=== PATIENT | male | born 1980 | race Caucasian/White ===

== ENCOUNTER 2017-01-04 09:18 | Emergency (ER) | payer OTHER, MEDICAID ==
[2017-01-04 09:23] VITALS: BP 122/83; PULSE 107; RESP 18; TEMP 98.1
--- NOTE | 2017-01-04 09:52 | ED ---
General Adult HPI - General Chief complaint: Needlestick/Exposure Stated complaint: needlestick Time Seen by Provider: 01/04/17 09:33 Source: patient, RN notes reviewed Mode of arrival: ambulatory Limitations: no limitations - History of Present Illness Initial comments: 36-year-old male presents to the emergency department with a chief complaint of needle stick injury. Patient states it happened at the surgical unit today during open heart case. Patient states that she has tetanus and his hepatitis vaccinations. Patient states he just nicked the back of his left ring finger. Patient denies any other injuries at this time. Patient's any pain or discomfort.Patient denies any recent fever, chills, shortness of breath, chest pain, back pain, abdominal pain, nausea vomiting, numbness or tingling, dysuria or hematuria, constipation or diarrhea, headaches or visual changes, or any other current symptoms. - Related Data Home Medications Medication Instructions Recorded Confirmed Dextroamphetamine/Amphetamine 25 mg PO DAILY 01/04/17 01/04/17 [Adderall Xr] Multivitamins, Thera [Multivitamin 1 tab PO DAILY 01/04/17 01/04/17 (formulary)] Allergies Allergy/AdvReac Type Severity Reaction Status Date / Time No Known Allergies Allergy Verified 01/04/17 09:32 Review of Systems ROS Statement: Those systems with pertinent positive or pertinent negative responses have been documented in the HPI. ROS Other: All systems not noted in ROS Statement are negative. Past Medical History Past Medical History: No Reported History History of Any Multi-Drug Resistant Organisms: None Reported Past Surgical History: No Surgical Hx Reported Past Psychological History: No Psychological Hx Reported Smoking Status: Never smoker Past Alcohol Use History: Occasional Past Drug Use History: None Reported General Exam - General Exam Comments Initial Comments: General: The patient is awake and alert, in no distress, and does not appear acutely ill. Neck: The neck is supple, there is no tenderness. Cardiovascular: There is a regular rate. Respiratory: respirations are non-labored Musculoskeletal: Sensation intact to plus pulses. Left extremity. Find motion of left hand. Patient does appear to have a needle stick injury to the left ring finger on the extensor side. Neurological: CN II-XII intact, There are no obvious motor or sensory deficits. Coordination appears grossly intact. Speech is normal. Skin: Skin is warm and dry and no rashes or lesions are noted. Psychiatric: Normal mood and affect. Limitations: no limitations Course Vital Signs 01/04/17 09:19 Temperature 98.1 F Pulse Rate 107 H Respiratory 18 Rate Blood Pressure 122/83 O2 Sat by Pulse 98 Oximetry Medical Decision Making - Medical Decision Making 36-year-old male presents emergency Department chief complaint of needle stick injury to left hand. This time appropriate lab work and information was taken for the patient. This time we did discuss follow-up. We did discuss return parameters were discussed outpatient family's questions. They state Agustín they are in agreement plan. All questions have been answered. They will be discharged this time. Disposition Clinical Impression: Needle stick injury of finger of left hand Disposition: HOME SELF-CARE Condition: Stable Instructions: Needle Stick Injuries (ED) Additional Instructions: Please use medication as discussed. Please follow up with family doctor if symptoms have not improved over the next two days. Please return to the emergency room if your symptoms increase or worsen or for any other concerns. Referrals: Yuan Fields MD [Primary Care Provider] - 1-2 days
[2017-01-05 11:00] LABS: Hepatitis C Virus IgG Ab Negative (Negative); Hepatitis C Virus IgG Index 0.03
== END 2017-01-04 09:59 | disposition home or self-care (01) ==
LOC: EC 09:18
DX: S69.92XA Unspecified injury of left wrist, hand and finger(s), initial encounter (principal); Z79.899 Other long term (current) drug therapy; W46.0XXA Contact with hypodermic needle, initial encounter; Y93.89 Activity, other specified; Y92.234 Operating room of hospital as the place of occurrence of the external cause
CPT/HCPCS: 36415; 86706; 86803; 87390; 99282

== ENCOUNTER → 2017-02-05 | Outpatient (CLI) | payer MEDICAID, BC ==
[2017-02-05 11:27] LABS: Basophils % (A) 1 %; CH 32.7; CHCM 35.4; Eosinophils # (A) 0.2 k/uL (0-0.7); Eosinophils % (A) 4 %; HCT 50.7 % (39.0-53.0); HDW 2.69; HGB 17.2 gm/dL (13.0-17.5); Luc # (Auto) 0.15; Luc % (Auto) 3; Lymphocytes # (A) 1.5 k/uL (1.0-4.8); Lymphocytes % (A) 29 %; MCH 31.4 pg (25.0-35.0); MCHC 33.9 g/dL (31.0-37.0); MCV 92.7 fL (80.0-100.0); Mean Platelet Volume 6.6; Monocytes # (A) 0.4 k/uL (0-1.0); Monocytes % (A) 8 %; Neutrophils # (A) 2.8 k/uL (1.3-7.7); Neutrophils % (A) 56 %; RBC 5.47 m/uL (4.30-5.90); WBC (Perox) 5.06
[2017-02-05 11:41] LABS: ALT 31 U/L (21-72); AST 24 U/L (17-59); Alkaline Phosphatase 66 U/L (38-126); Anion Gap 10 mmol/L; Blood Urea Nitrogen 12 mg/dL (9-20); Calcium 9.7 mg/dL (8.4-10.2); Carbon Dioxide 28 mmol/L (22-30); Chloride 103 mmol/L (98-107); Cholesterol 173 mg/dL (<200); Glucose 98 mg/dL (74-99); HDL Cholesterol 48 mg/dL (40-60); Non-African American GFR(MDRD) >60 (>60 ml/min/1.73 sqM); Potassium 4.3 mmol/L (3.5-5.1); Sodium 141 mmol/L (137-145); Total Bilirubin 0.6 mg/dL (0.2-1.3); Total Protein 7.5 g/dL (6.3-8.2)
[2017-02-05 23:12] LABS: Hemoglobin A1C 4.9 % (4.2-6.1)
== END | disposition home or self-care (01) ==
LOC: LABWHC1 10:59
PROVIDERS: ATTEND Nurse Practitioner Family
DX: E78.5 Hyperlipidemia, unspecified (principal); R00.1 Bradycardia, unspecified
CPT/HCPCS: 36415; 80053; 80061; 83036; 84439; 84443; 85025

== ENCOUNTER → 2017-10-14 | Outpatient (CLI) | payer BC ==
--- NOTE | 2017-10-15 07:49 | MR ---
EXAMINATION TYPE: MR knee RT wo con DATE OF EXAM: 10/14/2017 COMPARISON: NONE HISTORY: Pain in right knee TECHNIQUE: Multiplanar, multisequence imaging of the right knee is performed without IV contrast. FINDINGS: MEDIAL MENISCUS: There is grade 3 abnormal signal the posterior horn of the medial meniscus compatibl e with a meniscal tear. LATERAL MENISCUS: There is grade 3 abnormal signal in the anterior horn of the lateral meniscus is ab normal with meniscal tear. CRUCIATE LIGAMENTS: There is laxity of the anterior cruciate ligament but no evidence of tear. PCL in tact. COLLATERAL LIGAMENTS: The medial collateral ligament and lateral collateral ligament complex are inta ct and unremarkable. EXTENSOR MECHANISM: Visualized quadriceps and patellar tendons are intact. EFFUSION: No significant suprapatellar joint effusion. POPLITEAL CYST: No popliteal/caputo cyst. TRICOMPARTMENT SPACES: There is a focal area of chondromalacia grade 2 involving the patellar cartila ge. Joint space appears preserved. No sizable fluid collection within the suprapatellar bursa. BONE MARROW SIGNAL: There is a thin area of abnormal signal along the anterior medial femoral condyle compatible tiny area of marrow edema. Finding nonspecific. IMPRESSION: 1. Anterior horn lateral meniscal linear tear. 2. Posterior horn medial meniscal linear tear. 3. Focal area of chondromalacia central patellar cartilage
== END | disposition home or self-care (01) ==
LOC: RADMRIMAIN 17:04
PROVIDERS: ATTEND Orthopaedic Surgery
DX: S83.281A Other tear of lateral meniscus, current injury, right knee, initial encounter (principal); S83.241A Other tear of medial meniscus, current injury, right knee, initial encounter; M22.41 Chondromalacia patellae, right knee

== ENCOUNTER → 2017-11-10 | Outpatient (CLI) | payer BC ==
[2017-11-10 14:57] LABS: Basophils # (A) 0.1 k/uL (0-0.2); Basophils % (A) 1 %; Eosinophils # (A) 0.2 k/uL (0-0.7); Eosinophils % (A) 4 %; HCT 48.8 % (39.0-53.0); HGB 16.2 gm/dL (13.0-17.5); Lymphocytes # (A) 1.6 k/uL (1.0-4.8); Lymphocytes % (A) 28 %; MCHC 33.2 g/dL (31.0-37.0); MCV 90.5 fL (80.0-100.0); Mean Platelet Volume 6.2; Monocytes # (A) 0.4 k/uL (0-1.0); Monocytes % (A) 7 %; Neutrophils # (A) 3.4 k/uL (1.3-7.7); Neutrophils % (A) 57 %; Platelet Count 286 k/uL (150-450); WBC 5.9 k/uL (3.8-10.6)
[2017-11-10 15:23] LABS: Potassium 4.8 mmol/L (3.5-5.1)
== END | disposition home or self-care (01) ==
LOC: LABPAT 14:23
PROVIDERS: ATTEND Orthopaedic Surgery
DX: Z01.812 Encounter for preprocedural laboratory examination (principal); M23.91 Unspecified internal derangement of right knee
CPT/HCPCS: 36415; 80051; 85025

== ENCOUNTER 2017-11-19 06:36 | Day surgery (SDC) | payer BC ==
[2017-11-12 15:22] VITALS: BMI 24.3
--- NOTE | 2017-11-18 09:09 | HP ---
HISTORY AND PHYSICAL CHIEF COMPLAINT: Right knee pain. 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 It has worsened recently. He notes medial pain that increases with twisting and stairs. He occasionally feels like it gives out. He had a previous arthroscopy in 2003. PAST MEDICAL HISTORY: Negative. PAST SURGICAL HISTORY: Significant for right knee arthroscopy and left shoulder arthroscopy. CURRENT ALLERGIES: Adderall. ALLERGIES: He denies drug allergies. FAMILY HISTORY: Family history is negative. SOCIAL HISTORY: Social history is significant for previous tobacco use. REVIEW OF SYSTEMS: Sixteen-point review of systems otherwise reviewed and is noncontributory. PHYSICAL EXAMINATION: On examination, the patient is approximately 5 feet 9 inches, 162 pounds of mesomorphic habitus. HEENT exam is nonfocal. Neck is supple. He has painless passive motion of his right hip. Straight leg raise is negative. Active motion right knee -4 to 140 degrees of flexion. He is tender about the medial joint line. Collaterals are stable, Moe's negative, Mireya's elicits medial pain. His distal neurovascular exam appears intact in the right lower extremity. MRI of the right knee shows evidence of a posterior medial and anterior lateral meniscal tear. IMPRESSION: Internal derangement right knee with symptomatic medial meniscal tear. RECOMMENDATIONS: I talked to the patient at length regarding his condition and treatment options. At this point, he is having pain and mechanical symptoms that limit him. After thorough discussion, he opts to proceed with surgery. We will plan to proceed with arthroscopic evaluation with possible partial medial and lateral meniscectomy. Risks and benefits were discussed at length in layman's terms. We will likely perform that as an outpatient procedure. MMODL / IJN: [id number] /
[~2017-11-19 06:36] MED LIST: DEXAMETHASONE SOD PHOSPHATE 10 MG/ML 1 ML VIAL IV ONE; LACTATED RINGERS 1,000 ML IV SCH; LIDOCAINE 1% 20 ML VIAL (10MG/ML) FOR IV START INTRADERMA PRN; MIDAZOLAM 2 MG/2 ML VIAL IV PRN; ONDANSETRON 4 MG/2 ML VIAL IVP ONE; ceFAZolin IN SWFI 2 GM/20 ML SYRINGE IVP ONE; fentaNYL (PF) 50 MCG/ML 2 ML AMP IV PRN
[2017-11-19] MEDS ORDERED: ONDANSETRON 4 MG/2 ML VIAL ONE (06:56)
[2017-11-19] MEDS ORDERED: fentaNYL (PF) 50 MCG/ML 2 ML AMP ONE (07:55)
[2017-11-19] MEDS ORDERED: LIDOCAINE 1% INJ 10MG/ML (20 ML MDV) ONE (07:55)
[2017-11-19] MEDS ORDERED: KETOROLAC 30 MG/ML 1 ML VIAL ONE (07:55)
[2017-11-19] MEDS ORDERED: MIDAZOLAM 2 MG/2 ML VIAL ONE (07:55)
[2017-11-19] MEDS ORDERED: PROPOFOL 10 MG/ML 20 ML VIAL IV ONE (07:55)
[2017-11-19] MEDS ORDERED: EPINEPHrine (PF) 1 ML in SODIUM CHLORIDE 0.9% IRRIGATIO 3,000 ML IRRIGATION ONE ×4 (08:14)
--- NOTE | 2017-11-19 08:57 | P.OP ---
Date of Procedure: 11/19/17 Preoperative Diagnosis: Right knee internal derangement Postoperative Diagnosis: Right knee posterior medial meniscal tear/middle one third lateral meniscal tear /grade 2 chondral injury to lateral medial femoral condyle/grade 2 chondral injury femoral trochlea and medial patella facet Procedure(s) Performed: Right knee arthroscopic partial medial meniscectomy/partial lateral meniscectomy /medial femoral chondrectomy/patellar chondroplasty Anesthesia: GETA Surgeon: Sylvester Horvath Estimated Blood Loss (ml): 10 Pathology: none sent Condition: stable Disposition: PACU Indications for Procedure: The patient's a 37-year-old male who presents with progressive right knee pain and mechanical symptoms despite conservative measures. A discussion of the risks and benefits of operative intervention versus continued conservative measures was made with patient. He opted to proceed with surgery. Operative risks to include infection, neurovascular injury, developed blood clots, possible incomplete resolution of symptoms, possible worsening symptoms and need for subsequent procedures was discussed. Informed consent was obtained. Operative Findings: As below Description of Procedure: The patient was brought to the operating room, and after induction of general anesthesia examined the right knee. Collaterals were stable, Moe was negative, and posterior drawer was negative. The right lower extremity was prepped and draped in normal fashion. A superior lateral portal was made through a 3 mm skin incision superior and lateral to the patella. This was used for outflow. A lateral portal was made through a 5 mm vertical skin incision lateral to the patella tendon above the joint. Diagnostic arthroscopy was performed. A medial portal was made through a similar incision medial to the patella tendon above the joint. On inspection the medial compartment, he is noted to have a longitudinal tear involving the posterior horn of the medial meniscus in the white-white junction. This was not amenable to repair. This was debrided back to stable base with straight baskets and a motorized shaver. A corresponding grade 2 chondral injury was noted involving the posterior lateral portion of the medial femoral condyle with loose chondral fragment. This was debrided back to stable base with motorized shaver. There was a degree of chondrocalcinosis present in the medial compartment. On inspection of the notch, the anterior cruciate ligament appeared to be intact. On inspection of the lateral compartment, a small flap tear involving the middle one third of the lateral meniscus in the white-white junction was noted. This was debrided back to a stable base with a motorized shaver. Again there was a degree of chondrocalcinosis present. On inspection of the patellofemoral articulation, grade 2 chondral changes were noted involving the medial patella facet and femoral trochlea. There was a small loose chondral fragment involving the medial patella facet was debrided back to stable base with a motorized shaver. The gutters were clear of debris. The knee was then thoroughly irrigated. The portals were closed with Steri-Strips. A sterile dressing was applied in addition to a compression stocking. The patient was awoken from general anesthesia and transferred to recovery room in good condition. Blood loss was estimated at 10 mL. No complications were incurred.
[2017-11-19 09:00] VITALS: TEMP 97
[2017-11-19 09:01] VITALS: RESP 16
[2017-11-19] MEDS: HYDROmorphone 0.5 MG/0.5 ML SYRINGE IVP PRN ×2 (09:05→09:14)
[2017-11-19] MEDS ORDERED: ONDANSETRON 4 MG/2 ML VIAL IVP ONE (09:24)
[2017-11-19] MEDS ORDERED: LACTATED RINGERS 1,000 ML IV ONE (10:00)
[2017-11-19] MEDS ORDERED: SCOPOLAMINE 1.5MG/72HR PATCH TRANSDERM STA (10:20)
[2017-11-19] MEDS ORDERED: METOCLOPRAMIDE 5 MG/ML 2 ML VIAL IVP STA (10:21)
[2017-11-19 10:49] VITALS: BP 105/67; PULSE 62
== END 2017-11-19 11:15 | disposition home or self-care (01) ==
LOC: OR 06:36
PROVIDERS: ATTEND Orthopaedic Surgery
DX: S83.241A Other tear of medial meniscus, current injury, right knee, initial encounter (principal); S83.281A Other tear of lateral meniscus, current injury, right knee, initial encounter; S89.91XA Unspecified injury of right lower leg, initial encounter; X58.XXXA Exposure to other specified factors, initial encounter; Z79.899 Other long term (current) drug therapy; Z87.891 Personal history of nicotine dependence
CPT/HCPCS: 29880; J2250; J1100; J2405; J0171; J2001; J3010; J1885; J2704; J1170; J0690